=== PATIENT | female | born 1990 | race Caucasian/White ===

== ENCOUNTER 2018-11-01 16:54 | Emergency (ER) | payer BC ==
[~2018-11-01] VITALS: Ht 167.6 cm; Wt 54.4 kg
[2018-11-01 17:01] VITALS: BP 130/78
[2018-11-01] MEDS: LORazepam 0.5mg tab ORAL ONE (17:12)
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
[2018-11-01] MEDS ORDERED: ATIVAN0.5 MG ORAL (18:15)
[2018-11-01] MEDS ORDERED: ROBAXIN500 MG PO (18:15)
[2018-11-01 18:32] VITALS: BP 126/75
--- NOTE | 2018-11-01 18:34 | NUR ---
ER DISCHARGE NOTE: Patient is cleared to be discharged per ERMD, pt is aox4, on room air, with stable vital signs. pt was given dc and prescription instructions, pt was able to verbalize understanding, pt is able to ambulate with steady gait anf friend. pt took all belongings.
--- NOTE | 2018-11-02 11:13 | Diagnostic Imaging Report ---
Indication: Back pain Comparison: None Findings: 3 views of the lumbar spine were obtained. There is a stabilization device spanning T11-L1. Hardware consists of vertebral screws oriented from right to left at each of the vertebral bodies and fusion rods along the right side. Resected ribs noted at T11 and T12. Alignment of the lumbar spine appears normal. There is mild hypertrophy of the facets. IMPRESSION: Postsurgical changes T11/L1 as described above. No fracture or malalignment.
== END 2018-11-01 18:40 | disposition home or self-care (01) ==
LOC: EDBD 16:54 → EMR 18:33
DX: M54.9 Dorsalgia, unspecified (principal); F41.9 Anxiety disorder, unspecified; Z98.1 Arthrodesis status
CPT/HCPCS: 72020; 99283